=== PATIENT | male | born 1995 | race African-American/Black ===

== ENCOUNTER 2019-03-26 00:34 | Emergency (ER) | payer OTHER ==
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
[2019-03-26] MEDS ORDERED: CLINDAMYCIN 600MG PREMIX IVPB 600 MG/50 ML BAG IVPB ONE ×3 (01:24→01:49)
--- NOTE | 2019-03-26 01:46 | PDOC ---
Documentation entered by Poncho Alonso SCRIBE, acting as scribe for Barb Roach MD. Barb Roach MD: This documentation has been prepared by the konge, Poncho Alonso SCRIBE, under my direction and personally reviewed by me in its entirety. I confirm that the documentation accurately reflects all work, treatment, procedures, and medical decision making performed by me. Attending Attestation - Resident Resident Name: EmberKylie - ED Attending Attestation I have performed the following: I have examined & evaluated the patient, The case was reviewed & discussed with the resident, I agree w/resident's findings & plan - HPI HPI: 03/26/19 01:32 The patient is a 23 year old male with a significant past medical history of ASD heart murmur who presents to the emergency department with a worsening toothache for 2 weeks. The patient reports that he had an injury about 1 year ago by which he was elbowed in the mouth while playing basketball and subsequently fractured his tooth. The patient states that at the time he did not get further evaluation secondary to not having dental insurance. The patient reports that within the last 2 weeks he has been experiencing persistent pain with associated swelling for 1 week. The patient reports that he was taking excedrin 1x/day prior but denies any relief these past 2 weeks. The patient states that he tried using motrin with no apparent relief. He states that he had been able to eat and drink normally up until recently . he states that he is an athlete at school, playing basketball and running track. 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 He denies any fever, chills, nausea ,vomiting, diarrhea, headache, dizziness, lightheadedness chest pain, shortness of breath. He denies any other symptoms or complaints. - Physicial Exam PE: 03/26/19 02:10 Pt has no heart murmur; afebrile. Tooth #31 is broken; lateral to the tooth he has gingival swelling and fluctuant collection 2cm diameter. Exquisitely tender. Agree with resident exam - Medical Decision Making 03/26/19 02:11 Pt will be transferred to [facility]; I spoke to [facility], Dr. Rose who is admitting for Dr. Wei.
[2019-03-26] MEDS ORDERED: SODIUM CHLORIDE 0.9% 500 ML INFUS.BAG IV ONE (01:48)
[2019-03-26] MEDS ORDERED: AMPICILLIN NA/SULBACTAM NA 1.5 GM in SODIUM CHLORIDE 100 ML IVPB ONE (01:49)
[2019-03-26 01:52] LABS: BASO % 0.8 % (0-2.0); EOS % 1.1 % (0-4.5); HEMATOCRIT 44.1 % (35.4-49); HEMOGLOBIN 15.1 GM/dL (11.7-16.9); LYMPH % 20.9 % (8-40); MCH 32.3 pg (25.7-33.7); MCHC 34.2 g/dl (32.0-35.9); MEAN CELL VOLUME 94.5 fl (80-96); MEAN PLT VOLUME 8.8 fl (7.5-11.1); NEUT % 67.2 % (42.8-82.8); PLATELET COUNT 239 K/MM3 (134-434); RBC 4.66 M/mm3 (4.00-5.60); RDW 12.7 % (11.9-15.9); WHITE BLOOD COUNT 9.5 K/mm3 (4.0-10.0)
[2019-03-26 01:55] VITALS: BMI 25.8
[2019-03-26 02:51] VITALS: BP 142/63; PULSE 75; TEMP 99.1
[2019-03-26 03:08] LABS: BILIRUBIN,TOTAL 0.7 mg/dL (0.2-1); BLOOD UREA NITROGEN 8.6 mg/dL (7-18); CALCIUM 9.1 mg/dL (8.5-10.1); POTASSIUM 3.9 mmol/L (3.5-5.1); TOT PROT 7.4 g/dl (6.4-8.2)
== END 2019-03-26 02:50 | disposition short-term general hospital (02) ==
LOC: JER 00:34
DX: S02.5XXA Fracture of tooth (traumatic), initial encounter for closed fracture (principal); W50.0XXA Accidental hit or strike by another person, initial encounter; Y93.67 Activity, basketball; Y92.310 Basketball court as the place of occurrence of the external cause; Y99.8 Other external cause status
CPT/HCPCS: 36415; 80053; 85025; 96365; 96367; 99283-25